=== PATIENT | male | born 1945 | race African-American/Black ===

== ENCOUNTER → 2017-02-06 | Outpatient (CLI) | payer MEDICARE, BC | LOC: OD 10:25 | PROVIDERS: ATTEND Specialist | DX: E87.6 Hypokalemia (principal) | CPT/HCPCS: 36415; 84132 ==

== ENCOUNTER 2017-02-09 07:20 | Day surgery (SDC) | payer MEDICARE, BC ==
--- NOTE | 2017-02-02 20:54 | HISTORY AND PHYSICAL E ---
History and Physical NAME: LYNNE TELLO : 1945 AGE: 71Y ADMITTED: 02/06/2017 ROOM: PRIMARY CARE PROVIDER: Dr. Oreilly. REASON FOR ADMISSION: Patient admitted regarding colon screening. HISTORY: Subject patient is known to me since 2003. Adenomatous polyp, 2003. Sigmoid diverticulosis. Another colonoscopy 2013, showing the patient did have a 3 mm polyp, ascending colon; sessile polyp, transverse colon. , patient does have sessile polyps. He is due for colon screening. Sessile polyp in the transverse colon and ascending colon. Colonoscopy, October 2014, showing diverticulosis and polyps. The patient has had a serrated polyp in the ascending colon and tubular adenoma in the transverse colon. Negative for malignancy. REVIEWING OF SYSTEMS: Patient does have: Hypertension. History of polyps. History of prostate cancer. PHYSICAL EXAM: GENERAL: Pleasant, alert, oriented, in no acute distress. VITALS: Are: Blood pressure is 120/80, pulse 80, respirations 18. Temperature is 98. HEAD, EYES, EARS, NOSE, THROAT: Normal. NECK: Is supple. LUNGS: Are clear. ABDOMEN: Soft. NEUROLOGIC: Exam negative. PATIENT MEDICATIONS: 1. Pravastatin. 2. Lisinopril. 3. Amlodipine. PLAN: Colonoscopy. Admit on 02/09/2017; today is 02/02/2017. DICTATING PHYSICIAN: ABELINO DAVENPORT M.D. [id number] PHY#: [id number] ID: [id number] JOB#: [id number] ACCT: [id number] cc:CARLY OREILLY M.D., MAHMOUD M.D. >
[2017-02-09] MEDS ORDERED: LIDOCAINE 2% JELLY 30 ML TUBE ONE (07:54)
[2017-02-09] MEDS ORDERED: GLYCOPYRROLATE INJ 0.4 MG/2 ML VIAL ONE (07:54)
[2017-02-09] MEDS ORDERED: NALOXONE HCL INJ/PF 0.4 MG/1 ML SDV ONE (07:54)
[2017-02-09] MEDS ORDERED: ONDANSETRON HCL INJ/PF 4 MG/2 ML SDV ONE (07:54)
[2017-02-09] MEDS ORDERED: EPINEPHRINE INJ 1 MG/10 ML DISP.SYRIN ONE (07:55)
[2017-02-09] MEDS ORDERED: FLUMAZENIL INJ 0.5 MG/5 ML VIAL IV ONE (07:55)
[2017-02-09] MEDS ORDERED: GLUCAGON,HUMAN RECOMB 1 MG INJ ONE (07:56)
[2017-02-09] MEDS: MIDAZOLAM 2 MG/2 ML INJ ONE ×2 (08:15→08:25)
[2017-02-09] MEDS: FENTANYL CITRATE INJ/PF 100 MCG/2 ML AMPUL ONE ×2 (08:19→08:23)
[2017-02-09 09:58] VITALS: BP 106/65
--- NOTE | 2017-02-09 09:58 | OPERATIVE REPORT E ---
Operative Report NAME: LYNNE TELLO : 1945 AGE: 71Y DATE OF SURGERY: 02/09/2017 ROOM: PREOPERATIVE DIAGNOSIS: History of polyps. POSTOPERATIVE DIAGNOSIS: Diverticulosis sigmoid descending colon, 2 mm polyp ascending, 2 mm polyp transverse, 2 mm polyp sigmoid. OPERATION: Colonoscopy. SURGEON: ABELINO DAVENPORT M.D. ANESTHESIA: 3 Versed and 100 fentanyl. TISSUE REMOVED OR ALTERED: Biopsy polyp ascending colon 2 mm, biopsy polyp transverse colon 2 mm, biopsy polyp sigmoid colon. PROCEDURE: Rectal exam shows tiny polyp at the rectosigmoid junction 2 mm, sigmoid 2 mm polyp biopsy obtained. Sigmoid diverticulosis, descending colon diverticulosis. Transverse colon small polyp 2 mm, biopsy obtained. Ascending colon polyp 2 mm, biopsy obtained. Cecum normal. The appendix orifice visualized. Lavage flushed moderate amount of stool. Ascending colon again tiny polyp, descending colon and sigmoid tiny polyp, and diverticulosis. DISCHARGE PLAN: Soft diet, hold aspirin, awaiting biopsy results, followup office visit few days, consider followup colonoscopy in one year. 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 Patient needs a yearly colonoscopy. DICTATING PHYSICIAN: ABELINO DAVENPORT M.D. [id number] PHY#: [id number] ID: [id number] JOB#: [id number] ACCT: [id number] cc:Rosalba DAVALOS M.D. >
[2017-02-09 10:29] LABS: ABSOLUTE EOSINOPHILS # (AUTO) 0.1 10^3/uL (0.0-0.6); ABSOLUTE LYMPHOCYTES (AUTO) 1.5 10^3/uL (0.5-4.7); ABSOLUTE MONOCYTES (AUTO) 0.5 10^3/uL (0.1-1.4); ABSOLUTE NEUT (AUTO) 3.7 10^3/uL (1.7-8.2); BASOPHILS % (AUTO) 0.5 % (0-2); EOSINOPHILS % (AUTO) 1.9 % (0-6); HEMATOCRIT 38.9 % (37.9-51.0); HEMOGLOBIN 12.9 g/dL (13.5-17.0); HGB HCT DIFFERENCE -0.2; MEAN CORPUSCULAR HEMOGLOBIN 30.4 pg (27.0-33.4); MEAN CORPUSCULAR HGB CONC 33.1 g/dL (32.0-36.0); MEAN CORPUSCULAR VOLUME 92 fl (80-97); MONOCYTES % (AUTO) 8.1 % (3-13); RED BLOOD COUNT 4.24 10^6/uL (4.35-5.55); SEGMENTED NEUTROPHILS % (AUTO) 63.5 % (42-78); WHITE BLOOD COUNT 5.8 10^3/uL (4.0-10.5)
[2017-02-09 11:22] LABS: CARCINOEMBRYONIC ANTIGEN 1.6 ng/mL (<3.0)
--- NOTE | 2017-02-09 14:28 | DISCHARGE SUMMARY E ---
Discharge Summary NAME: LYNNE SETHI : 1945 AGE: 71Y ADMITTED: 02/09/2017 DISCHARGED: 02/09/2017 PROCEDURE: Colonoscopy and biopsy. HOSPITAL COURSE: Mr. Sethi is 71, known to me. Last colonoscopy in 2014 shows serous adenoma polyp 3 mm. Today's colonoscopy shows more polyps in the transverse colon 2-3 mm in size and sigmoid polyp and ascending colon polyp. DISCHARGE PLAN: Awaiting biopsy results. Soft diet. Hold aspirin. Patient to see us in the office in the next few days. Patient needs yearly colonoscopy. DICTATING PHYSICIAN: ABELINO DAVENPORT M.D. [id number] PHY#: [id number] ID: [id number] JOB#: [id number] ACCT: [id number] cc:CARLY OREILLY M.D., MAHMOUD M.D. >
== END 2017-02-09 10:20 | disposition home or self-care (01) ==
LOC: END 07:20
PROVIDERS: ATTEND Specialist
PROC: 0DBL8ZX Excision of Transverse Colon, Via Natural or Artificial Opening Endoscopic, Diagnostic (ICD-10-PCS; 2017-02-09)
PROC: 0DBP8ZX Excision of Rectum, Via Natural or Artificial Opening Endoscopic, Diagnostic (ICD-10-PCS; 2017-02-09)
PROC: 0DBK8ZX Excision of Ascending Colon, Via Natural or Artificial Opening Endoscopic, Diagnostic (ICD-10-PCS; principal; 2017-02-09 08:00)
DX: K57.30 Diverticulosis of large intestine without perforation or abscess without bleeding (principal); D12.3 Benign neoplasm of transverse colon; D12.2 Benign neoplasm of ascending colon; K63.5 Polyp of colon; R97.0 Elevated carcinoembryonic antigen [CEA]; I10 Essential (primary) hypertension; Z79.899 Other long term (current) drug therapy; Z85.46 Personal history of malignant neoplasm of prostate
CPT/HCPCS: 45380; 36415; 82378; 84132; 85025; 88305 ×2; J2250; J3010; J1610; J2405; J0171; J2310; J3490